=== PATIENT | female | born 1995 | race Caucasian/White ===

== ENCOUNTER 2018-05-29 00:54 | Emergency (ER) | payer BC ==
[~2018-05-29] VITALS: Ht 154.9 cm; Wt 64.0 kg
[2018-05-29 00:55] VITALS: Ht 154.9 cm; Wt 64.0 kg
--- NOTE | 2018-05-29 01:52 | ERD ---
ER Documentation Chief Complaint Chief Complaint C/O VAGINAL BLEEDING X1 HR STATES 14WEEKS HPI 23-year-old female presents here to emergency department for complete vaginal bleeding that started 1 hour prior to arrival. Patient is approximately 14 weeks , 1 para 0 0. Patient is complaining of pelvic pain cramping pain 4/10 scale, not better or worse with anything. Patient denies any hematuria or dysuria. Patient denies any fever or chills. ROS All systems reviewed and are negative except as per history of present illness. Medications Home Meds Reported Medications [None] Unknown Strength No Conflict Check 05/29/18 Allergies Allergies: Coded Allergies: No Known Allergy (Unverified , 05/29/18) PMhx/Soc Medical and Surgical Hx: pt denies Medical Hx, pt denies Surgical Hx History of Surgery: No Anesthesia Reaction: No Hx Neurological Disorder: No Hx Respiratory Disorders: No Hx Cardiac Disorders: No Hx Psychiatric Problems: No Hx Miscellaneous Medical Probl: No Hx Alcohol Use: No Hx Substance Use: No Hx Tobacco Use: No Smoking Status: Never smoker FmHx Family History: No diabetes, No coronary disease, No other Physical Exam Vitals Vital Signs Date Temp Pulse Resp B/P (MAP) Pulse Ox O2 O2 Flow FiO2 Time Delivery Rate 05/29/18 97.7 87 17 121/70 95 00:55 (87) Physical Exam GENERAL: The patient is well developed and appropriate for usual state of health, in no apparent distress. CHEST: Clear to auscultation bilaterally. There are no rales, wheezes or rhonchi. HEART: Regular rate and rhythm. No murmurs, clicks, rubs or gallops. No S3 or S4. ABDOMEN: Soft, nontender and nondistended. Good bowel sounds. No rebound or guarding. No gross peritonitis. No gross organomegaly or masses. No Beasley sign or McBurney point tenderness. BACK: No midline or flank tenderness. EXTREMITIES: Equal pulses bilaterally. There is no peripheral clubbing, cyanosis or edema. No focal swelling or erythema. Full range of motion. Grossly neurovascularly intact. NEURO: Alert and oriented. Cranial nerves 2-12 intact. Motor strength in all 4 extremities with 5/5 strength. Sensation grossly intact. Normal speech and g ait. SKIN: There is no apparent rash or petechia. The skin is warm and dry. HEMATOLOGIC AND LYMPHATIC: There is no evidence of excessive bruising or lymphedema. No gross cervical, axillary, or inguinal lymphadenopathy. Result Diagram: 05/29/18 0210 Results 24 hrs Laboratory Tests Test 05/29/18 02:00 05/29/18 02:10 Urine Color YELLOW Urine Clarity SLIGHTLY CLOUDY Urine pH 6.0 Urine Specific [place] 1.018 Urine Ketones NEGATIVE mg/dL Urine Nitrite NEGATIVE mg/dL Urine Bilirubin NEGATIVE mg/dL Urine Urobilinogen NEGATIVE mg/dL Urine Leukocyte Esterase NEGATIVE Yolanda/ul Urine Microscopic RBC > 182 /HPF Urine Microscopic WBC 3 /HPF Urine Hemoglobin 3+ mg/dL Urine Glucose NEGATIVE mg/dL Urine Total Protein NEGATIVE mg/dl White Blood Count 9.7 10^3/ul Red Blood Count 3.50 10^6/ul Hemoglobin 10.6 g/dl Hematocrit 31.6 % Mean Corpuscular Volume 90.3 fl Mean Corpuscular Hemoglobin 30.3 pg Mean Corpuscular Hemoglobin Concent 33.5 g/dl Red Cell Distribution Width 13.2 % Platelet Count 266 10^3/UL Mean Platelet Volume 9.2 fl Immature Granulocytes % 0.500 % Neutrophils % 70.7 % Lymphocytes % 21.1 % Monocytes % 6.9 % Eosinophils % 0.6 % Basophils % 0.2 % Nucleated Red Blood Cells % 0.0 /100WBC Immature Granulocytes # 0.050 10^3/ul Neutrophils # 6.8 10^3/ul Lymphocytes # 2.0 10^3/ul Monocytes # 0.7 10^3/ul Eosinophils # 0.1 10^3/ul Basophils # 0.0 10^3/ul Nucleated Red Blood Cells # 0.0 10^3/ul Beta HCG, Quantitative 74860.0 mIU/ml PROCEDURE: US OB Transabdominal 1st trimester. CLINICAL INDICATION: , bleeding TECHNIQUE: Transabdominal of the pelvis are available for review. COMPARISON: No prior studies are available for comparison. FINDINGS: There is a single living intrauterine gestation. Benavides-rump length: 7.53 cm heart rate: 154 beats per minute Ultrasound estimated gestational age: 13 weeks 4 days MAJOR: 11/30/2018 Left anterolateral placenta. No evidence of abruption. Uterus is otherwise unremarkable. Ovaries not visualized. IMPRESSION: Single living intrauterine , best estimated age 13 weeks 4 days. MAJOR 11/30/2018. RPTAT: [facility] Physician Ariela Date Time Electronically viewed and signed by Physician Ariela on 05/29/2018 02:26 xB/ CC: LONA SÁNCHEZ NP [id number] Procedures/MDM Medical Decision Making: Patients vaginal bleeding is most likely consistent of possible threatened . Patient does not show any evidence of hypovolemic shock. Patients hemoglobin and hematocrit is stable. There is low suspicion for ectopic . NATALYA results show a viable 13-week without any abruption of placenta or placenta previa. BetaHCG Quantitative is appropriate for patient.The patient is Rh+, does not need RhoGAM this time. There is no signs of symptoms of dehydration. There is low suspicion for sepsis. Patient appears well and is hemodynamically stable. Disposition: Home. Condition: Stable Instructions: Patient is advised to do bed rest, avoid heavy lifting, and avoid having sex until cleared by OB doctor. Patient is advised to follow up with OB doctor or here at the ER in 48 hours for reevaluation of symptoms, repeat beta HCG quantitative and ultrasound. Patient is advised that is symptoms are worst, severe bleeding, dizziness, severe abdominal pain, fever, worst signs and symptoms to return to the emergency department immediately. Disclaimer: Inadvertent spelling and grammatical errors are likely due to EHR/dictation software use and do not reflect on the overall quality of patient care. Also, please note that the electronic time recorded on this note does not necessarily reflect the actual time of the patient encounter. Departure Diagnosis: Primary Impression: Vaginal bleeding in patient at less than 20 weeks gestation Condition: Stable Patient Instructions: Bleeding During Early Additional Instructions: Patient is advised to do bed rest, avoid heavy lifting, and avoid having sex until cleared by OB doctor. Patient is advised to follow up with OB doctor or here at the ER in 48 hours for reevaluation of symptoms, repeat beta HCG quantitative and ultrasound. Patient is advised that is symptoms are worst, severe bleeding, dizziness, severe abdominal pain, fever, worst signs and symptoms to return to the emergency department immediately. LONA SÁNCHEZ NP May 29, 2018 01:52
[2018-05-29 04:32] VITALS: BP 98/57; PULSE 77; RESP 18
== END 2018-05-29 04:34 | disposition home or self-care (01) ==
LOC: FTE 00:54
DX: O20.9 Hemorrhage in early pregnancy, unspecified (principal); R10.2 Pelvic and perineal pain; Z3A.13 13 weeks gestation of pregnancy
CPT/HCPCS: 36415; 76801; 81001; 84702; 85025; 86900; 86901